=== PATIENT | male | born 1990 | race Hispanic/Latino ===

== ENCOUNTER 2022-08-06 21:10 | Emergency (ER) | payer SELFPAY ==
[~2022-08-06] VITALS: Ht 170.2 cm; Wt 64.4 kg
[2022-08-06] MEDS ORDERED: ACYCLOVIR800 MG PO (21:37)
== END 2022-08-06 21:40 | disposition home or self-care (01) ==
LOC: ER 21:14
DX: B01.9 Varicella without complication (principal)
CPT/HCPCS: 99282